=== PATIENT | female | born 1980 | race African-American/Black ===

== ENCOUNTER 2020-02-07 12:24 | Emergency (ER) | payer MEDICARE, MEDICAID ==
[~2020-02-07] VITALS: Ht 170.2 cm; Wt 68.0 kg
[2020-02-07 12:27] VITALS: BP 130/80
[2020-02-07] MEDS ORDERED: HYDROcodone/Acetamin 5/325 tab ORAL ONE (13:30)
[2020-02-07] MEDS ORDERED: Bacitracin Oint UD TOPIC ONE (13:30)
[2020-02-07] MEDS ORDERED: Tetanus/Diptheria/Pertussis IM ONE (13:30)
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
--- NOTE | 2020-02-07 15:35 | Diagnostic Imaging Report ---
Indication: Facial pain after trauma Technique: CT maxillofacial was performed utilizing automated exposure control without intravenous contrast material. Axial and coronal images were generated. CT dose: Total DLP 315.5 mGycm; CTDI vol 18.3 mGy Comparison: None Findings: There is a lucency through the right anterior zygomatic arch, which does not appear to correspond to a nutrient foramen. Mandible is unremarkable. No nasal bone fracture identified. There is a left inferior orbital wall fracture with moderate herniation of conal fat; no associated maxillary sinus air-fluid level or displaced fragments.. Lamina papyracea are intact. Alignment of the extraocular muscles is intact. Globes are unremarkable. There is mild soft tissue swelling overlying the right zygomatic arch. Paranasal sinuses and mastoid air cells are clear. The nasal septum is midline. Visualized intracranial compartment is unremarkable. Impression: 1. Suspected acute nondisplaced right anterior zygomatic arch fracture. 2. Left medial orbital wall blowout fracture, which may be chronic. Findings discussed with FILEMON House at 1520 on 02/07/[address] scanner at [facility] is accredited by the [employer] and the scans are performed using protocols designed to limit radiation exposure to as low as reasonably achievable to attain images of sufficient resolution adequate for diagnostic evaluation.
--- NOTE | 2020-02-07 15:41 | Diagnostic Imaging Report ---
Indication: Back pain Technique: CT lumbosacral spine was performed utilizing automated exposure control without intravenous contrast material. Axial and coronal images were generated. CT dose: Total DLP 155.9 mGycm; CTDI vol 5.2 mGy Comparison: None Findings: Alignment is anatomic. There are 5 lumbar type vertebral bodies. Minimal scoliosis. There is straightening of the normal lumbar lordosis, which may be positional or due to muscle spasm. Vertebral body heights are maintained. No acute fracture or spondylolisthesis. Mild multilevel discogenic degenerative changes. There is nonunion of the left L3 pars interarticularis, with well-corticated margins. No acute soft tissue abnormality. Mild aortoiliac atherosclerotic calcification. Impression: 1. No acute fracture or malalignment. 2. Nonunion of the left L3 pars interarticularis, which may be secondary to chronic pars fracture or developmental in etiology. The CT scanner at [facility] is accredited by the [employer] and the scans are performed using protocols designed to limit radiation exposure to as low as reasonably achievable to attain images of sufficient resolution adequate for diagnostic evaluation.
[2020-02-07] MEDS ORDERED: NORCO 5-325 TA1 EAC1 ORAL (16:08)
[2020-02-07] MEDS ORDERED: MEDERMA20 GM TP (16:08)
[2020-02-07] MEDS ORDERED: BACITRACIN15 GM TOPIC (16:08)
[2020-02-07 16:19] VITALS: BP 130/80
== END 2020-02-07 16:19 | disposition home or self-care (01) ==
LOC: EDBD 12:24 → EMR 14:24
DX: S02.40DA Maxillary fracture, left side, initial encounter for closed fracture (principal); M54.5 Low back pain; G89.29 Other chronic pain; S80.12XA Contusion of left lower leg, initial encounter; S80.11XA Contusion of right lower leg, initial encounter; S00.83XA Contusion of other part of head, initial encounter; S32.03 Fracture of third lumbar vertebra; X58.XXXD Exposure to other specified factors, subsequent encounter; Z23 Encounter for immunization; M41.9 Scoliosis, unspecified
CPT/HCPCS: 70486; 72131; 90471; 90715; 99284